=== PATIENT | female | born 1990 | race Caucasian/White ===

== ENCOUNTER 2020-12-05 19:21 | Emergency (ER) | payer MEDICAID ==
--- NOTE | 2020-12-05 20:15 | EDM.PDOC ---
ED HPI GENERAL MEDICAL PROBLEM - General Chief Complaint: Skin Complaint Stated Complaint: SKIN COMPLAINT/BOTH ARM Time Seen by Provider: 12/05/20 19:44 Source of Information: Reports: Patient, RN Notes Reviewed History Limitations: Reports: No Limitations - History of Present Illness INITIAL COMMENTS - FREE TEXT/NARRATIVE: Patient is a 30-year-old female who presents to the ER today for bilateral upper arm complaint. Patient notes she was at her father's house, when the spigot broke off of the sink or the bathtub, and she had to push her hands against the area to prevent hot water from splashing all over. States she is having pain in her bilateral wrists, on the ulnar aspect of her anterior hand/wrist, where she was putting most of the pressure on the area the water would have come out of the faucet. She does not have any visible pa to her arms or hands at this time. Patient denies any other sick-like symptoms, fever/chills, cough/shortness of breath, nausea/vomiting/diarrhea. She did not take anything for pain management prior to coming to the ER. Bilateral Hand Pain Score (Numeric/FACES): 5 - Related Data Allergies Allergy/AdvReac Type Severity Reaction Status Date / Time Unable to Assess Allergy Unverified 12/05/20 19:46 Past Medical History Respiratory History: Reports: Asthma Gastrointestinal History: Reports: GERD Psychiatric History: Reports: Anxiety, Depression - Past Surgical History Other HEENT Surgeries/Procedures: states has had numerous surgeries but cannot name them Social & Family History - Tobacco Use Tobacco Use Status *Q: Never Tobacco User Second Hand Smoke Exposure: No - Recreational Drug Use Recreational Drug Use: No ED ROS GENERAL - Review of Systems Review Of Systems: Comprehensive ROS is negative, except as noted in HPI. ED EXAM, SKIN/RASH Exam: See Below Exam Limited By: No Limitations General Appearance: Alert, WD/WN, No Apparent Distress Respiratory/Chest: No Respiratory Distress, Lungs Clear, Normal Breath Sounds, No Accessory Muscle Use, Chest Non-Tender Cardiovascular: Normal Peripheral Pulses, Regular Rate, Rhythm, No Edema Peripheral Pulses: 2+: Radial (L), Radial (R) Extremities: Normal Inspection, Normal Range of Motion, Normal Capillary Refill Neurological: Alert, Oriented, Normal Cognition, No Motor/Sensory Deficits Psychiatric: Normal Affect, Normal Mood Skin: Warm, Dry, Intact, Normal Color, No Rash Course - Vital Signs Last Recorded V/S: Last Vital Signs Temp 97 F 12/05/20 19:43 Pulse 80 12/05/20 19:43 Resp 16 12/05/20 19:43 BP 113/83 12/05/20 19:43 Pulse Ox 95 12/05/20 19:43 - Re-Assessments/Exams Free Text/Narrative Re-Assessment/Exam: 12/05/20 20:12 Patient presents to the ER for her bilateral upper arm injury. I do suspect that the patient may have soft tissue contusion of sorts, due to having to put pressure on a broken faucet. No major skin injuries were apparent at today's visit, and she seems to be using her wrist without difficulty. I did go over conservative measures for management and she verbalized understanding. Departure - Departure Time of Disposition: 20:12 Disposition: Home, Self-Care 01 Condition: Good Clinical Impression: Contusion of hand(s) Qualifiers: Encounter type: initial encounter Laterality: unspecified laterality Qualified Code(s): S60.229A - Contusion of unspecified hand, initial encounter - Discharge Information *PRESCRIPTION DRUG MONITORING PROGRAM REVIEWED*: No *COPY OF PRESCRIPTION DRUG MONITORING REPORT IN PATIENT TEO: No Instructions: Contusion, [id number] Referrals: PCP,Not In Area [Primary Care Provider] - Additional Instructions: You were evaluated in the ER today for your bilateral arm injuries. The discomfort you are experiencing is most likely due to deep tissue or soft tissue contusion in your bilateral hands, due to having to put pressure on the faucet that had broke. You may try ice to the area, elevate the area above the level of the heart over the next few days to see if this helps relieve some of the pain and swelling. You may try 500 mg Tylenol or 600 mg ibuprofen every 6 hours as needed for ongoing pain management. Do not exceed 4000 mg Tylenol or 3200 mg ibuprofen in a 24-hour time span. If your pain is not much better in roughly 1 week's time, recommend you seek care from your primary care physician for reevaluation. Please do not hesitate to return to the ER at any time if symptoms change or w orsen. Sepsis Event Note (ED) - Evaluation Sepsis Screening Result: No Definite Risk - Focused Exam Vital Signs: Vital Signs Temp Pulse Resp BP Pulse Ox 12/05/20 19:43 97 F 80 16 113/83 95
== END 2020-12-05 20:30 | disposition home or self-care (01) ==
LOC: JD.ED 19:21
DX: S60.221A Contusion of right hand, initial encounter (principal); S60.222A Contusion of left hand, initial encounter; J45.909 Unspecified asthma, uncomplicated; X11.8XXA Contact with other hot tap-water, initial encounter; Y92.009 Unspecified place in unspecified non-institutional (private) residence as the place of occurrence of the external cause
CPT/HCPCS: 99282; 99283